=== PATIENT | female | born 1990 | race Caucasian/White ===

== ENCOUNTER 2023-12-05 18:17 | Emergency (ER) | payer BC, SELFPAY ==
[2023-12-05 18:20] VITALS: BP 114/76
[2023-12-05] MEDS: TYLENOL 650 MG PO (18:27)
[2023-12-05] MEDS: ZOFRAN ODT (ORALLY DISINTEGRATING) 4 MG PO (18:27)
[2023-12-05 19:05] LABS: ALT (SGPT) 14 U/L (0-35); AST (SGOT) 22 U/L (14-36); Albumin 4.3 g/dl (3.5-5.0); Alkaline Phosphatase 76 U/L (38-126); Blood Urea Nitrogen 10 mg/dl (7-17); Calcium 8.7 mg/dl (8.4-10.2); Carbon Dioxide 24 mmol/L (22-30); Chloride 95 mmol/L (98-107); Glucose 112 mg/dl (70-99); Lipase 27 U/L (23-300); Potassium 3.5 mmol/L (3.5-5.1); Sodium 127 mmol/L (135-145); Total Bilirubin 3.7 mg/dl (0.2-1.3); Total Protein 6.9 g/dl (6.3-8.2); eGFR > 60.00
[2023-12-05 19:12] LABS: COVID-19 Antigen Negative (Negative)
[2023-12-05 19:24] LABS: % Basophils 0.3 % (0-2); % Immature Granulocytes 1.5 % (0-0.5); % Lymphocytes 4.4 % (20.5-51.1); % Monocytes 3.8 % (1.7-9.3); Absolute Basophils 0.1 10^3/uL (0-0.2); Absolute Immature Granulocytes 0.3 10^3/uL (0-0.05); Absolute Monocytes 0.8 10^3/uL (0.1-0.6); Absolute Neutrophils 20.2 10^3/uL (1.4-6.5); Hematocrit 28.5 % (37.0-47.0); Hemoglobin 10.9 g/dL (12.0-16.0); Mean Corp Hgb Conc. 38.2 g/dL (33.0-37.0); Mean Corpuscular Hgb 29.9 pg (27.0-31.0); Mean Corpuscular Volume 78.3 fL (81.0-99.0); Mean Platelet Volume 9.1 fL (7.4-10.4); Nucleated Red Blood Cells % 0 %; Platelet Count 196 10^3/uL (130-400); Red Blood Cell Count 3.64 10^6/uL (4.20-5.40); Red Cell Dist. Width 16.5 % (11.5-14.5); White Blood Cell Count 22.4 10^3/uL (4.8-10.8)
[2023-12-05 20:44] VITALS: BMI 21.7
[2023-12-05] MEDS: ZOFRAN 4 MG IV (20:45)
[2023-12-05] MEDS: NSS 1000 IV (20:45)
--- NOTE | 2023-12-05 20:45 | ED.GENMED ---
History of Present Illness
General
Chief Complaint: Abdominal Symptoms
Time Seen by Provider: 12/05/23 19:43
Travel History
Have you had any contact with someone who has COVID-19?: No
Do you have any symptoms of coronavirus? Fever > 100 degrees, chills, cough, shortness of breath, sore throat, loss of taste or smell, muscle aches, or headache?: Yes
Symptoms:: fever
History of Present Illness
History of Present Illness:
33-year-old female with no significant past medical history presents to the emergency department for evaluation of nausea and vomiting as well as fever. She reports right flank pain briefly today but currently has no symptoms. Denies any diarrhea.
Coughing, difficulty breathing, hematemesis, dysuria, or hematuria. She is recently is continuing to breast-feed
Past History
Past History
ED Past Medical History: Other (Anemia due to microspherocytosis, elevated bilirubin)
ED Past Surgical History: None
Social History
Personal: Single
Living: with family
Employment: Student
Review of Systems
Review of Systems
Allergies reviewed?: Yes
All Other Systems: ROS reviewed and negative except as documented in HPI and ROS
Phy Exam
Physical Exam
Physical Exam:
GEN: Well appearing, NAD, WDWN
Eyes: PERRLA, EOMs intact, no scleral icterus
HENT: NCAT, oral mucosa moist
Lungs: CTAB, no wheezes, rales, rhonchi, normal chest wall excursion
Cardiac: RRR, no M/R/G, no peripheral edema. Radial pulses 2+ bilat
Abdomen: S, NT, ND, NABS, no masses or hepatosplenomegaly. Mild right CVA tenderness, negative left
Neuro: AO x 3
MSK: No gross deformity or ecchymosis. No edema. No digital clubbing
Skin: No rashes, petechiae. Normal color, no pallor or jaundice.
Psych: Calm, cooperative, proper hygiene
Course
Orders/Labs/Results
Orders:
Orders
12/05/23 18:26
Acetaminophen [Tylenol] 650 mg .ROUTE .STK-MED ONE
Ondansetron Orally Disint [Zofran Odt (Orally Disintegrating)] 4 mg .ROUTE .STK-MED ONE
12/05/23 18:27
Acetaminophen [Tylenol] 650 mg PO NOW STA
Ondansetron Orally Disint [Zofran Odt (Orally Disintegrating)] 4 mg PO NOW STA
12/05/23 18:31
COVID-19 Antigen Urgent
Source: Nasal Swab
Complete Blood Count/With Diff Urgent
Comprehensive Metabolic Panel Urgent
Lactic Acid Urgent
Lipase Urgent
Blood Culture Urgent
VALARIE Source: Blood/Venous
Specimen Description:
Influenza A+B Rapid Molecular Urgent
VALARIE Source: Nasal Swab
Specimen Description:
12/05/23 20:04
0.9% Sodium Chloride 1000 ml [Nss] 1,000 ml IV BOLUS
Ondansetron Injectable [Zofran] 4 mg IV NOW STA
12/05/23 20:50
Urinalysis Reflex To Culture Urgent
Date Specimen was Collected: 12/05/23
Time Specimen was Collected: 20:39
Urine Microscopic Reflex Cult Urgent
Blood Culture Urgent
VALARIE Source: Blood/Venous
Specimen Description:
Urine Culture Urgent
VALARIE Source: U
Specimen Description:
Date Specimen was Collected: 12/05/23
Time Specimen was Collected: 20:39
12/05/23 21:22
CefTRIAXone [Rocephin] 1,000 mg IV NOW STA
Abnormal Lab Results
12/05/23 12/05/23
18:31 20:50
WBC 22.4 H 10^3/uL
(4.8-10.8)
RBC 3.64 L 10^6/uL
(4.20-5.40)
Hgb 10.9 L g/dL
(12.0-16.0)
Hct 28.5 L %
(37.0-47.0)
MCV 78.3 L fL
(81.0-99.0)
MCHC 38.2 H g/dL
(33.0-37.0)
RDW 16.5 H %
(11.5-14.5)
Abs Immat Gran (auto) 0.3 H 10^3/uL
(0-0.05)
Absolute Neuts (auto) 20.2 H 10^3/uL
(1.4-6.5)
Absolute Lymphs (auto) 1.0 L 10^3/uL
(1.2-3.4)
Absolute Monos (auto) 0.8 H 10^3/uL
(0.1-0.6)
Immature Gran % 1.5 H %
(0-0.5)
Neutrophils % 90.0 H %
(42.2-75.2)
Lymphocytes % 4.4 L %
(20.5-51.1)
Sodium 127 L mmol/L
(135-145)
Chloride 95 L mmol/L
(98-107)
Glucose 112 H mg/dl
(70-99)
Total Bilirubin 3.7 H mg/dl
(0.2-1.3)
Urine Ketones 1+ A
(Negative)
Ur Occult Blood Reflex Trace A
(Negative)
Urine WBC (Reflex) 30-40 A /HPF
(0-5)
Urine Bacteria (Reflex) Moderate A
(Negative)
12/05/23 18:31
12/05/23 18:31
Vital Signs
Initial and Last Documented VS:
Initial Vital Signs
Temp Pulse Resp BP Pulse Ox
103.1 F H 112 18 114/76 97
12/05/23 18:20 12/05/23 18:20 12/05/23 18:20 12/05/23 18:20 12/05/23 18:20
Last Documented Vital Signs
Temp Pulse Resp BP Pulse Ox
98.6 F 78 16 108/64 98
12/05/23 20:47 12/05/23 22:14 12/05/23 22:14 12/05/23 22:14 12/05/23 22:14
MDM/Problems Addressed
MDM/Problems Addressed:
UA suggestive of UTI, given clinical presentation likely acute pyelonephritis. Although she has significant leukocytosis, she is otherwise well appearing and suitable for d/c home. IV ceftriaxone started in ED.
*Critical Care Note
Total Time (30-74mins, 75-104mins- exclusive of procedures): Not Applicable
ED Attending Note
-
Portions of this chart may have been created with voice recognition software.� Occasional wrong word or��sound alike� substitutions may have occurred due to the inherent limitations of voice recognition software.
Discharge Plan
Departure
Patient Disposition: Home (Routine Discharge)
Date of Disposition: 12/05/23
Time of Disposition: 22:07
Patient with high blood pressure during this ER visit?: No
Discharge Problem:
Acute pyelonephritis
Instructions: Kidney Infection (DC)
Prescriptions:
New
ondansetron 4 mg tablet,disintegrating
4 mg PO TIDPRN PRN (Reason: nausea/vomiting) Qty: 10 0RF
cefdinir 300 mg capsule
300 mg PO Q12H 9 Days Qty: 18 0RF
Referrals:
Peña Zamorano DO [Family Provider] -
Interventions
Interventions:
*Risk Screen - Suicide Last Done: 12/05/23 18:20
*General Assessment Last Done: 12/05/23 18:20
*Neglect/Abuse Screening Last Done: 12/05/23 18:20
ED- Fall Risk Assessment Last Done: 12/05/23 22:15
*ED COVID-19 Vaccine History Last Done: 12/05/23 18:20
*Nursing Disposition Last Done: 12/05/23 22:15
FD-Subqtl-Eupedateze Assessment Last Done: 12/05/23 21:25
Discharge Date and Time
Discharge Date/Time: 12/05/23 22:22
Print Language: [place] CITIZEN
[2023-12-05 20:47] VITALS: BP 95/57
[2023-12-05 21:01] LABS: Urine Albumin Trace (Neg - Trace); Urine Bilirubin Negative (Negative); Urine Character Clear (Clear); Urine Color Yellow; Urine Glucose Negative (Negative); Urine Ketone 1+ (Negative); Urine Leukocyte Negative (Negative); Urine Nitrite Negative (Negative); Urine Occult Blood Trace (Negative); Urine Urobilinogen Negative (Neg - 1+); Urine pH 6.5 (5.0-9.0)
[2023-12-05 21:10] LABS: Urine Squamous Cell 16-20 /LPF (Few)
[2023-12-05 21:13] LABS: Urine Bacteria Moderate (Negative); Urine Red Blood Cell None Seen /HPF (0-2); Urine White Cell 30-40 /HPF (0-5)
[2023-12-05] MEDS: ROCEPHIN 1000 MG IV (21:32)
[2023-12-05 22:14] VITALS: BP 108/64
== END 2023-12-05 22:22 | disposition home or self-care (01) ==
LOC: EMR 18:17
PROVIDERS: Physician Assistant; Student in an Organized Health Care Education/Training Program; EMERGENCY PHYSICIAN Emergency Medicine; FAMILY PHYSICIAN Family Medicine
DX: O99.893 Other specified diseases and conditions complicating puerperium (principal); N10 Acute pyelonephritis; R50.9 Fever, unspecified; R11.2 Nausea with vomiting, unspecified; R10.9 Unspecified abdominal pain; Z11.52 Encounter for screening for COVID-19; O90.81 Anemia of the puerperium
CPT/HCPCS: 99284; 96374; 96375; 96361; 80053; 81003; 81015; 83605; 83690; 85025; 87040; 87086; 87502; 87811

== ENCOUNTER 2023-12-07 16:09 | Emergency (ER) | payer BC, SELFPAY ==
[2023-12-07 16:12] VITALS: BP 115/71; BMI 20.5
[2023-12-07 17:08] LABS: % Basophils 0.9 % (0-2); % Eosinophils 1.3 % (0-6); % Immature Granulocytes 1.3 % (0-0.5); % Lymphocytes 25.5 % (20.5-51.1); % Monocytes 7.7 % (1.7-9.3); % Neutrophils 63.3 % (42.2-75.2); Absolute Basophils 0.1 10^3/uL (0-0.2); Absolute Eosinophils 0.1 10^3/uL (0-0.7); Absolute Immature Granulocytes 0.1 10^3/uL (0-0.05); Absolute Lymphocytes 2.2 10^3/uL (1.2-3.4); Absolute Monocytes 0.7 10^3/uL (0.1-0.6); Absolute Neutrophils 5.4 10^3/uL (1.4-6.5); Hematocrit 28.7 % (37.0-47.0); Hemoglobin 10.6 g/dL (12.0-16.0); Mean Corp Hgb Conc. 36.9 g/dL (33.0-37.0); Mean Corpuscular Hgb 29.1 pg (27.0-31.0); Mean Corpuscular Volume 78.8 fL (81.0-99.0); Mean Platelet Volume 8.8 fL (7.4-10.4); Nucleated Red Blood Cells % 0 %; Platelet Count 254 10^3/uL (130-400); Red Blood Cell Count 3.64 10^6/uL (4.20-5.40); Red Cell Dist. Width 16.3 % (11.5-14.5); Urine Albumin Negative (Neg - Trace); Urine Bilirubin Negative (Negative); Urine Character Clear (Clear); Urine Color Yellow; Urine Glucose Negative (Negative); Urine Ketone Negative (Negative); Urine Leukocyte Negative (Negative); Urine Nitrite Negative (Negative); Urine Occult Blood Negative (Negative); Urine Specific Gravity 1.005 (<1.030); Urine Urobilinogen Negative (Neg - 1+); White Blood Cell Count 8.5 10^3/uL (4.8-10.8)
[2023-12-07 17:17] LABS: HCG, Serum Qualitative Screen Negative
[2023-12-07 17:27] LABS: Blood Urea Nitrogen 11 mg/dl (7-17); Calcium 9.6 mg/dl (8.4-10.2); Carbon Dioxide 25 mmol/L (22-30); Chloride 99 mmol/L (98-107); Estimated Creatinine Clearance 96 ml/min; Glucose 116 mg/dl (70-99); Potassium 3.7 mmol/L (3.5-5.1); Sodium 134 mmol/L (135-145); eGFR > 60.00
[2023-12-07] MEDS: ZITHROMAX 500 MG PO (20:05)
[2023-12-07 20:07] VITALS: BP 111/64
--- NOTE | 2023-12-07 20:21 | ED.GENMED ---
History of Present Illness
General
Chief Complaint: Urinary Symptoms
Source: patient and family
Exam Limitations: none
Time Seen by Provider: 12/07/23 16:38
Nursing documentation reviewed up to this point in time: agreed with
Travel History
Have you had any contact with someone who has COVID-19?: No
Do you have any symptoms of coronavirus? Fever > 100 degrees, chills, cough, shortness of breath, sore throat, loss of taste or smell, muscle aches, or headache?: No
History of Present Illness
History of Present Illness:
33-year-old female past medical history of anemia presenting to the emergency department today with concerns of ongoing right lower chest and right upper flank discomfort was recently diagnosed with a UTI 4 days ago treated with cefdinir. She
claims that she had some nausea vomiting some abdominal pain at that time as well as a cough. Symptoms seem to improve after a few days of cefdinir but over the past day she is noticed increasing discomfort to the right lower chest and right
lateral flank area. Denies Specific fevers.
Past History
Past History
ED Past Medical History: Other (Anemia due to microspherocytosis, elevated bilirubin)
ED Past Surgical History: None
Social History
Personal: Single
Living: with family
Employment: Student
Review of Systems
Review of Systems
Allergies reviewed?: Yes
All Other Systems: ROS reviewed and negative except as documented in HPI and ROS
Phy Exam
Physical Exam
Physical Exam:
GENERAL: Alert , in no apparent distress
EYE: pupils equal and reactive
NECK: Supple, no significant adenopathy.
ENT: o/p clr, mmm.
CARDIAC: Regular rate and rhythm .
LUNGS: Slight crackles to the right lower lungs otherwise clear breath sounds bilaterally, no acute respiratory distress,
ABDOMEN: No reproducible abdominal discomfort slight crackles to the right lower lungs soft, without focal tenderness, no r/g, no cvat
NEUROLOGICAL: Alert and oriented, no focal neuro deficits
SKIN: Warm and dry, skin intact.
MUSCULOSKELETAL: No edema, well perfused.
PSYCH: Normal and appropriate interaction.
Course
Orders/Labs/Results
Orders:
Orders
12/07/23 16:55
CT Abd/pel Without Iv Or Oral Urgent
Comment:
Reason For Exam: r flank pain
Test Result ONCE
12/07/23 17:00
Beta Hcg Serum Qualitative Screen [HCG, Serum Qualitative Screen] Urgent
CBC/With Diff [Complete Blood Count/With Diff] Urgent
Comprehensive Metabolic Panel Urgent
Comment: ADD ON
Direct Bilirubin Urgent
Comment: ADD ON
Urinalysis Reflex To Culture Urgent
Date Specimen was Collected: 12/07/23
Time Specimen was Collected: 16:48
Chlamydia/GC by PCR Urgent
VALARIE Source: Urine
Specimen Description:
Source:: URINE
Date Specimen was Collected: 12/07/23
Time Specimen was Collected: 16:48
12/07/23 19:23
Add On- LAB Urgent
Tests Added?: LFT's, alk phos, bili
12/07/23 19:58
Azithromycin [Zithromax] 500 mg PO NOW STA
Abnormal Lab Results
12/07/23
17:00
RBC 3.64 L 10^6/uL
(4.20-5.40)
Hgb 10.6 L g/dL
(12.0-16.0)
Hct 28.7 L %
(37.0-47.0)
MCV 78.8 L fL
(81.0-99.0)
RDW 16.3 H %
(11.5-14.5)
Abs Immat Gran (auto) 0.1 H 10^3/uL
(0-0.05)
Absolute Monos (auto) 0.7 H 10^3/uL
(0.1-0.6)
Immature Gran % 1.3 H %
(0-0.5)
Sodium 134 L mmol/L
(135-145)
Glucose 116 H mg/dl
(70-99)
12/07/23 17:00
12/07/23 17:00
Vital Signs
Initial and Last Documented VS:
Initial Vital Signs
Temp Pulse Resp BP Pulse Ox
98 F 77 16 115/71 99
12/07/23 16:12 12/07/23 16:12 12/07/23 16:12 12/07/23 16:12 12/07/23 16:12
Last Documented Vital Signs
Temp Pulse Resp BP Pulse Ox
98 F 71 16 111/64 99
12/07/23 16:12 12/07/23 20:07 12/07/23 20:07 12/07/23 20:07 12/07/23 20:07
MDM/Problems Addressed
MDM/Problems Addressed:
33-year-old female presenting to the emergency department today with concerns of ongoing right-sided upper flank and right-sided lower chest discomfort upon arrival here vital signs are normal patient is afebrile patient without any reproducible
abdominal pain no right upper quadrant pain negative Trinh's no white count hemoglobin 10.6 other labs unremarkable concerning the ongoing symptoms CT scan was performed that showed a pneumonia to the right lower lobe. Potentially explaining
patient's symptoms and initial fever. Potentially partially treated with cefdinir that she has been taking over the past few days. Patient was additionally started on azithromycin but otherwise stable for outpatient management and advised for
close outpatient follow-up. Return precautions given.
*Critical Care Note
Total Time (30-74mins, 75-104mins- exclusive of procedures): Not Applicable
ED Attending Note
-
Portions of this chart may have been created with voice recognition software.� Occasional wrong word or��sound alike� substitutions may have occurred due to the inherent limitations of voice recognition software.
Discharge Plan
Departure
Patient Disposition: Home (Routine Discharge)
Date of Disposition: 12/07/23
Time of Disposition: 20:26
Patient with high blood pressure during this ER visit?: No
Condition: Good
Covid-19: Not Applicable
Discharge Problem:
Pneumonia, Splenomegaly
Instructions: Pneumonia, Adult (DC)
Prescriptions:
New
azithromycin 500 mg tablet
500 mg PO DAILY 2 Days Qty: 2 0RF
No Action
ondansetron 4 mg tablet,disintegrating
4 mg PO TIDPRN PRN (Reason: nausea/vomiting) Qty: 10 0RF
cefdinir 300 mg capsule
300 mg PO Q12H 9 Days Qty: 18 0RF
Referrals:
Alon Mckeon MD [Family Provider] -
Activity Restrictions/Additional Instructions:
You came to the emergency department today with concerns of ongoing discomfort to your right upper flank and right lower chest area. You are found to have a pneumonia that could explain your symptoms. Please take the remainder of the cefdinir
prescription as well as the azithromycin 500 mg once a day for the next 2 days. Please follow close with the primary care doctor for reassessment. Return to the emergency department for any worsening, new or concerning symptoms.
Interventions
Interventions:
*Risk Screen - Suicide Last Done: 12/07/23 16:12
*General Assessment Last Done: 12/07/23 17:04
*Neglect/Abuse Screening Last Done: 12/07/23 16:12
*ED COVID-19 Vaccine History Last Done: 12/07/23 16:12
ED-Female Genitourinary Assessment Last Done: 12/07/23 16:50
Discharge Date and Time
Print Language: PALEST[place]
[2023-12-07 20:49] LABS: ALT (SGPT) 19 U/L (0-35); AST (SGOT) 25 U/L (14-36); Albumin 4.3 g/dl (3.5-5.0); Alkaline Phosphatase 60 U/L (38-126); Direct Bilirubin 0.4 mg/dl (0.0-0.4); Total Bilirubin 1.5 mg/dl (0.2-1.3); Total Protein 7.1 g/dl (6.3-8.2)
== END 2023-12-07 20:46 | disposition home or self-care (01) ==
LOC: EMR 16:09
PROVIDERS: Physician Assistant; EMERGENCY PHYSICIAN Emergency Medicine; FAMILY PHYSICIAN Family Medicine
DX: J18.9 Pneumonia, unspecified organism (principal); R16.2 Hepatomegaly with splenomegaly, not elsewhere classified
CPT/HCPCS: 99284; 74176; 80053; 81003; 82248; 84703; 85025; 87491; 87591

== ENCOUNTER → 2023-12-23 13:26 | Outpatient (REF) | payer BC, SELFPAY | LOC: HWRAD 13:26 | PROVIDERS: ATTENDING PHYSICIAN Student in an Organized Health Care Education/Training Program | DX: J18.9 Pneumonia, unspecified organism (principal) | CPT/HCPCS: 71046 ==

== ENCOUNTER → 2024-01-23 12:26 | Outpatient (REF) | payer BC, SELFPAY | LOC: HWRAD 12:26 | PROVIDERS: ATTENDING PHYSICIAN Student in an Organized Health Care Education/Training Program | DX: R93.89 Abnormal findings on diagnostic imaging of other specified body structures (principal) | CPT/HCPCS: 71046 ==

== ENCOUNTER → 2024-11-12 12:52 | Outpatient (REF) | payer BC, SELFPAY | LOC: HWRAD 12:52 | PROVIDERS: ATTENDING PHYSICIAN Physician Assistant Medical | DX: R05.1 Acute cough (principal) | CPT/HCPCS: 71046 ==

== ENCOUNTER 2024-11-13 19:56 | Emergency (ER) | payer BC, SELFPAY ==
[2024-11-13 20:06] VITALS: BP 108/69
[2024-11-13 20:27] LABS: HCG, Urine Qualitative Screen Negative
[2024-11-13 22:55] LABS: % Basophils 1.1 % (0-2); % Eosinophils 1.2 % (0-6); % Immature Granulocytes 0.8 % (0-0.5); % Monocytes 6.4 % (1.7-9.3); % Neutrophils 56.5 % (42.2-75.2); Absolute Basophils 0.1 10^3/uL (0-0.2); Absolute Eosinophils 0.1 10^3/uL (0-0.7); Absolute Immature Granulocytes 0.1 10^3/uL (0-0.05); Absolute Lymphocytes 3.2 10^3/uL (1.2-3.4); Absolute Monocytes 0.6 10^3/uL (0.1-0.6); Absolute Neutrophils 5.4 10^3/uL (1.4-6.5); Hematocrit 30.4 % (37.0-47.0); Hemoglobin 11.3 g/dL (12.0-16.0); Mean Corp Hgb Conc. 37.2 g/dL (33.0-37.0); Mean Corpuscular Hgb 30.8 pg (27.0-31.0); Mean Corpuscular Volume 82.8 fL (81.0-99.0); Mean Platelet Volume 8.8 fL (7.4-10.4); Nucleated Red Blood Cells % 0 %; Platelet Count 283 10^3/uL (130-400); Red Blood Cell Count 3.67 10^6/uL (4.20-5.40); Red Cell Dist. Width 16.4 % (11.5-14.5); White Blood Cell Count 9.5 10^3/uL (4.8-10.8)
[2024-11-13 23:06] LABS: ALT (SGPT) 17 U/L (0-35); AST (SGOT) 26 U/L (14-36); Albumin 4.6 g/dl (3.5-5.0); Alkaline Phosphatase 40 U/L (38-126); Blood Urea Nitrogen 16 mg/dl (7-17); Calcium 9.6 mg/dl (8.4-10.2); Carbon Dioxide 29 mmol/L (22-30); Chloride 105 mmol/L (98-107); Glucose 102 mg/dl (70-99); Potassium 3.8 mmol/L (3.5-5.1); Sodium 142 mmol/L (135-145); Total Bilirubin 1.9 mg/dl (0.2-1.3); Total Protein 7.2 g/dl (6.3-8.2); eGFR > 60.00
--- NOTE | 2024-11-13 23:19 | ED.GENMED ---
History of Present Illness
General
Chief Complaint: Cough
Source: patient
Exam Limitations: none
Time Seen by Provider: 11/13/24 23:08
Nursing documentation reviewed up to this point in time: agreed with
History of Present Illness
History of Present Illness:
Pleasant 34-year-old female presents to the emergency department with persistent hemoptysis and cough. Patient has had a cough and cold symptoms for the last week. She began coughing up blood. She went to see her primary care provider who saw
pictures of the sputum. Family provider was contacted when the hemoptysis did not stop and she was advised to come to the emergency department for 'a CT scan and a D-dimer '. Patient states that she feels good. She denies shortness of breath or
fevers. She states that she has several family members that have had pulmonary emboli. Today she states that her varicose veins in her legs were bothering her. She states that her leg pain is chronic
Past History
Past History
ED Past Medical History: Other (Anemia due to microspherocytosis, elevated bilirubin)
ED Past Surgical History: None
Social History
Personal: Single
Living: with family
Employment: Student
Review of Systems
Review of Systems
Allergies reviewed?: Yes
All Other Systems: ROS reviewed and negative except as documented in HPI and ROS
Constitutional: Reports no symptoms
EENT: Reports no symptoms
Respiratory: Reports no symptoms
Cardiac: Reports no symptoms
ABD/GI: Reports no symptoms
: Reports no symptoms
Musculoskeletal: Reports muscle pain
Skin: Reports no symptoms
Neurological: Reports no symptoms
Endocrine: Reports no symptoms
Hematologic/Lymphatic: Reports no symptoms
Psychiatric: Reports no symptoms
Phy Exam
General Physical Exam
General Presentation: well appearing and no apparent distress
General Skin: warm and dry
General Habitus: normal
General Mental: alert
General Hydration: appears well hydrated
ENT Exam
ENT Exam: EOMI, pharynx normal, neck supple and normocephalic
Eye Exam
Eye Exam: PERRL, cornea clear and conjunctiva normal
Cardiovascular Exam
Cardiovascular Exam: regular rate/rhythm, no edema, no murmur and normal peripheral pulses
Pulmonary Exam
Pulmonary Exam: lungs clear, no respiratory distress, no rales, no crackles, no rhonchi, no stridor, no wheezing and no cough
Gastrointestinal Exam
Gastrointestinal Exam: normal bowel sounds, non tender, soft, no organomegaly, no pulsatile mass and non distended
Neurological Exam
Neurological Exam: alert, oriented x3, no motor deficits and speech normal
Musculoskeletal Exam
Musculoskeletal Exam: full ROM and no edema
Skin Exam
Skin Exam: normal color, warm/dry, no rash and no petechia
Psychiatric Exam
Psychiatric Exam: normal mood/affect
Course
Orders/Labs/Results
Orders:
Orders
11/13/24 20:17
Test Result ONCE
11/13/24 20:20
Urine,Hcg qualitative screen [HCG, Urine Qualitative Screen] Urgent
Date Specimen was Collected: 11/13/24
Time Specimen was Collected: 20:17
11/13/24 22:39
CMP [Comprehensive Metabolic Panel] Urgent
Complete Blood Count/With Diff Urgent
11/14/24 00:03
CT Chest PE Study Urgent
Reason For Exam: hemoptysis, calf tenderness, fam hx pe
Abnormal Lab Results
11/13/24
22:39
RBC 3.67 L 10^6/uL
(4.20-5.40)
Hgb 11.3 L g/dL
(12.0-16.0)
Hct 30.4 L %
(37.0-47.0)
MCHC 37.2 H g/dL
(33.0-37.0)
RDW 16.4 H %
(11.5-14.5)
Abs Immat Gran (auto) 0.1 H 10^3/uL
(0-0.05)
Immature Gran % 0.8 H %
(0-0.5)
Glucose 102 H mg/dl
(70-99)
Total Bilirubin 1.9 H mg/dl
(0.2-1.3)
11/13/24 22:39
11/13/24 22:39
Vital Signs
Initial and Last Documented VS:
Initial Vital Signs
Temp Pulse Resp BP Pulse Ox
98.4 F 66 18 108/69 100
11/13/24 20:06 11/13/24 20:06 11/13/24 20:06 11/13/24 20:06 11/13/24 20:06
Last Documented Vital Signs
Temp Pulse Resp BP Pulse Ox
98.4 F 66 16 103/87 99
11/13/24 20:06 11/14/24 02:16 11/14/24 02:16 11/14/24 02:16 11/14/24 02:16
*Critical Care Note
Total Time (30-74mins, 75-104mins- exclusive of procedures): Not Applicable
Update Note
Update Note:
CTA CHEST
IMPRESSION:
Good injection, mild motion, no definite PE seen.
No TAA or dissection.
Few small foci of air trapping. No focal consolidation.
Report sent @ 205 AM ET
Landry London M.D.
ED Attending Note
-
Portions of this chart may have been created with voice recognition software.� Occasional wrong word or��sound alike� substitutions may have occurred due to the inherent limitations of voice recognition software.
Discharge Plan
Departure
Patient Disposition: Home (Routine Discharge)
Date of Disposition: 11/14/24
Time of Disposition: 02:29
Patient with high blood pressure during this ER visit?: No
Condition: Good
Discharge Problem:
Hemoptysis
Instructions: Coughing up blood
Prescriptions:
No Action
ondansetron 4 mg tablet,disintegrating
4 mg PO TIDPRN PRN (Reason: nausea/vomiting) Qty: 10 0RF
cefdinir 300 mg capsule
300 mg PO Q12H 9 Days Qty: 18 0RF
azithromycin 500 mg tablet
500 mg PO DAILY 2 Days Qty: 2 0RF
Referrals:
Melvin Duarte MD [Family Provider] -
Activity Restrictions/Additional Instructions:
It was a pleasure meeting you and taking part in your care. We hope for your continued healing and wellness.
Please read discharge instructions in their entirety. However, they are for general education and may not describe your exact diagnosis at discharge. Information on your ER visit and medical conditions were discussed with you along with appropriate
follow up information...
If indicated, please take your medications as instructed and indicated on discharge paperwork.
Please schedule a follow up appointment as directed. Call to schedule an appointment
Please return to the emergency department with ANY change in, persisting, or worsening of symptoms. If any of your symptoms do not improve, or persist, or become more severe within 6-12 hours, please return to the emergency department for further
care.
Please return to the emergency department if you develop a headache, neck pain/stiffness, fever greater than 100.4F, chest pain, shortness of breath, persistent nausea, vomiting, slurred speech, difficulty walking, numbness/tingling, weakness, signs
of infection or any other symptoms that are worrisome to you.
If you have any questions or concerns please do not hesitate to call the Hospital at or E-mail me directly at [email or web address]
Interventions
Interventions:
*Risk Screen - Suicide Last Done: 11/13/24 20:06
*General Assessment Last Done: 11/13/24 20:06
*Neglect/Abuse Screening Last Done: 11/13/24 20:06
*ED COVID-19 Vaccine History Last Done: 11/13/24 20:06
ED- Pulmonary Assessment Last Done: 11/13/24 23:35
Discharge Date and Time
Print Language: PERSI[place]
[2024-11-13 23:50] VITALS: BP 105/70; BMI 22.6
[2024-11-14 02:16] VITALS: BP 103/87
== END 2024-11-14 02:49 | disposition home or self-care (01) ==
LOC: EMR 19:56
PROVIDERS: Emergency Medicine; EMERGENCY PHYSICIAN Student in an Organized Health Care Education/Training Program; FAMILY PHYSICIAN Family Medicine
DX: R04.2 Hemoptysis (principal); Z86.711 Personal history of pulmonary embolism
CPT/HCPCS: 99284; 71275; 80053; 81025; 85025; Q9967